=== PATIENT | male | born 1950 | race African-American/Black ===

== ENCOUNTER 2017-01-19 11:10 | Inpatient (IN) | payer OTHER, MEDICARE ==
[2017-01-19 12:51] VITALS: BMI 23.6
--- NOTE | 2017-01-19 14:22 | HP ---
COWS - Scale Resting Pulse: 1= OK 81-100 Sweatin=Flushed/Facial Moisture Restless Observation: 3= Extraneous Movement Pupil Size: 2= Moderately Dilated Bone or Joint Aches: 2= Severe Diffuse Aches Runny Nose/ Eye Tearin= Runny Nose/Eyes GI Upset > 30mins: 3= Vomiting/Diarrhea Tremor Observation: 2= Slight Tremor Visible Yawning Observation: 2= >3x During Session Anxiety or Irritability: 2=Irritable/Anxious Goose Flesh Skin: 0=Smooth Skin COWS Score: 21 CIWA Score - CIWA Score Nausea/Vomitin Muscle Tremors: 3 Anxiety: 3 Agitation: 3 Paroxysmal Sweats: 2 Orientation: 0-Oriented Tacttile Disturbances: 2-Mild Itch/Numbness/Burn Auditory Disturbances: 2-Mild Harshness/Frighten Visual Disturbances: 2-Mild Sensitivity Headache: 2-Mild CIWA-Ar Total Score: 22 Admission ROS BHS - HPI Chief Complaint: I NEED HELP STOP USING HEROIN,ALCOHOL AND COCAINE Allergies/Adverse Reactions: Allergies Allergy/AdvReac Type Severity Reaction Status Date / Time No Known Allergies Allergy Verified 01/19/17 14:17 History of Present Illness: THIS 67 YEARS OLD MALE WITH HEROINE,COCAINE AND ALCOHOL DEPENDENCE,SEEKING DETOX ,LAST TREATMENT 08/10 [facility] MULTIPLE MEDICAL PROBLEM HEPATITIS C,HYPERTENSION,BPH,ARTHRITIS WEIGHT LOSS NO SIGNIFICANT PERIOD OF SOBRIETY Exam Limitations: No Limitations - Ebola screening Have you traveled outside of the country in the last 21 days: No Have you had contact with anyone from an Ebola affected area: No Have you been sick,other than usual withdrawal symptoms: No Do you have a fever: No - Review of Systems Constitutional: Loss of Appetite, Malaise, Night Sweats, Changes in sleep, Unintentional Wgt. Loss EENT: reports: Tearing, Nose Congestion Respiratory: reports: No Symptoms reported Cardiac: reports: No Symptoms Reported GI: reports: Diarrhea, Nausea, Vomiting, Abdominal cramping : reports: No Symptoms Reported Musculoskeletal: reports: Back Pain, Muscle Pain Integumentary: reports: Dryness Neuro: reports: Tremors Endocrine: reports: No Symptoms Reported Hematology: reports: No Symptoms Reported Psychiatric: reports: No Sypmtoms Reported, Judgement Intact, Mood/Affect Appropiate, Orientated x3, Agitated, Anxious Patient History - Patient Medical History Hx Anemia: No Hx Asthma: No Hx Chronic Obstructive Pulmonary Disease (COPD): No Hx Cancer: No Hx Cardiac Disorders: No Hx Congestive Heart Failure: No Hx Hypertension: Yes (ON MED) Hx Hypercholesterolemia: No Hx Pacemaker: No HX Cerebrovascular Accident: No Hx Seizures: No Hx Dementia: No Hx Diabetes: No Hx Gastrointestinal Disorders: No Hx Liver Disease: No Hx Genitourinary Disorders: No Hx Sexually Transmitted Disorders: No Hx Renal Disease (ESRD): No Hx Thyroid Disease: No Hx Human Immunodeficiency Virus (HIV): No (LAST 07/11 NEGATIVE) Hx Hepatitis C: Yes Hx Depression: Yes (ANXIETY) Hx Suicide Attempt: No Hx Bipolar Disorder: No Hx Schizophrenia: No Other Medical History: NO SUCIDAL,NO HOMICIDAL - Patient Surgical History Past Surgical History: No - PPD History Previous Implant?: Yes Documented Results: Positive w/o proof Implanted On Prior [facility] Admission?: No PPD to be Administered?: No - Smoking Cessation Smoking history: Current every day smoker Have you smoked in the past 12 months: Yes Aproximately how many cigarettes per day: 8 Cigars Per Day: 0 Hx Chewing Tobacco Use: No Initiated information on smoking cessation: Yes 'Breaking Loose' booklet given: 01/19/17 - Substance & Tx. History Hx Alcohol Use: Yes Hx Substance Use: Yes Substance Use Type: Alcohol, Cocaine, Heroin Hx Substance Use Treatment: Yes (LAST [facility] 07/11) - Substances Abused Heroin Route: Injection Frequency: Daily Amount used: 5 bags Age of first use: 17 Date of Last Use: 01/17/17 Alcohol Route: Oral Frequency: Daily Amount used: 1 pint whiskey Age of first use: 16 Date of Last Use: 01/17/17 Cocaine Route: Injection Frequency: Daily Amount used: 1/2 ounce Age of first use: 17 Date of Last Use: 01/19/17 Family Disease History - Family Disease History Family Disease History: Other: Father (ALCOHOL,), Mother (ALCOHOL, ), Sister (ALCOHOL,) Admission Physical Exam BHS - Vital Signs Vital Signs: Vital Signs - 24 hr 01/19/17 12:42 Temperature 96.7 F L Pulse Rate 84 Respiratory 20 Rate Blood Pressure 160/100 - Physical General Appearance: Yes: Moderate Distress, Tremorous, Irritable, Sweating, Anxious HEENTM: Yes: Normal ENT Inspection, NUVIA, Pharynx Normal Respiratory: Yes: Lungs Clear, Normal Breath Sounds, No Respiratory Distress Neck: Yes: Within Normal Limits, Supple, Trachea in good position Breast: Yes: Within Normal Limits Cardiology: Yes: Within Normal Limits, Regular Rhythm, Regular Rate, S1, S2 Abdominal: Yes: Within Normal Limits, Normal Bowel Sounds, Non Tender, Flat, Soft Genitourinary: Yes: Within Normal Limits Back: Yes: Muscle Spasm Musculoskeletal: Yes: full range of Motion, Back pain, Muscle Pain Extremities: Yes: Tremors Neurological: Yes: pump tender II-XII NML intact, Fully Oriented, Alert, Motor Strength 5/5 Integumentary: Yes: Dry Lymphatic: Yes: Within Normal Limits - Diagnostic (1) Opioid dependence with withdrawal Current Visit: Yes Status: Acute (2) Cocaine dependence Current Visit: Yes Status: Acute (3) Alcohol dependence with uncomplicated withdrawal Current Visit: Yes Status: Acute (4) Hepatitis C Current Visit: Yes Status: Acute (5) Nicotine dependence Current Visit: Yes Status: Acute (6) Hypertension Current Visit: Yes Status: Acute (7) BPH (benign prostatic hyperplasia) Current Visit: Yes Status: Acute (8) Anxiety and depression Current Visit: Yes Status: Acute (9) Arthritis Current Visit: Yes Status: Acute Cleared for Admission S - Detox or Rehab [facility] Level of Care: Medically Managed Detox Regimen/Protocol: Librium [facility] Breath Alcohol Content Breath Alcohol Content: 0 Urine Drug Screen - Results Drug Screen Negative: No Urine Drug Screen Results: SHIVANI-Cocaine, OPI-Opiates, TCA-Tricyclic Antidepress
[2017-01-19] MEDS ORDERED: diphenhydrAMINE HCL 50 MG CAPSULE PO PRN (14:41)
[2017-01-19] MEDS ORDERED: chlordiazePOXIDE HCL 25 MG CAPSULE PO PRN (14:41)
[2017-01-19] MEDS ORDERED: MAGNESIUM CITRATE 300 ML BOTTLE PO PRN (14:41)
[2017-01-19] MEDS ORDERED: guaiFENesin/D-METHORPHAN HB 10 ML UNIT-DOSE CUPS PO PRN (14:41)
[2017-01-19] MEDS ORDERED: MENTHOL/PHENOL 1 EACH UD MM PRN (14:41)
[2017-01-19] MEDS ORDERED: MAG HYDROX/AL HYDROX/SIMETH 30 ML UNIT-DOSE CUP PO PRN (14:41)
[2017-01-19] MEDS ORDERED: MAGNESIUM HYDROX 2400MG/30ML ORAL SUSPENSION 30 ML CUP PO PRN (14:41)
[2017-01-19] MEDS ORDERED: ACETAMINOPHEN 325 MG TABLET (FP) PO PRN (14:41)
[2017-01-19] MEDS ORDERED: LOPERAMIDE HCL 2 MG CAPSULE PO PRN (14:41)
[2017-01-19] MEDS ORDERED: P-EPHED 60MG/TRIPROLIDI 2.5MG TABLET PO PRN (14:41)
[2017-01-19] MEDS ORDERED: IBUPROFEN 400 MG TABLET (FP) PO PRN (14:41)
[2017-01-19] MEDS ORDERED: METHADONE HCL 10 MG TABLET (FOR DETOX USE ONLY) PO ONE ×2 (16:15→23:00)
[2017-01-19] MEDS ORDERED: METHADONE HCL 10 MG TABLET (FOR DETOX USE ONLY) ONE (18:39)
[2017-01-19] MEDS: chlordiazePOXIDE HCL 25 MG CAPSULE PO SCH ×2 (18:40→23:08)
[2017-01-19] MEDS: AMITRIPTYLINE HCL 100 MG TABLET PO SCH (22:55)
[2017-01-19] MEDS: THIAMINE HCL 100 MG TABLET (FP) PO SCH (23:08)
[2017-01-19] MEDS: MIRTAZAPINE 15 MG TABLET (FP) PO SCH (23:08)
[2017-01-20 00:50] LABS: URINE APPEARANCE CLEAR; URINE BILIRUBIN NEGATIVE (NEGATIVE); URINE BLOOD NEGATIVE (NEGATIVE); URINE COLOR LTYELLOW; URINE GLUCOSE (UA) NEGATIVE (NEGATIVE); URINE KETONE NEGATIVE (NEGATIVE); URINE NITRITE NEGATIVE (NEGATIVE); URINE UROBILINOGEN NEGATIVE mg/dL (0.2-1.0)
[2017-01-20 00:56] LABS: URINE PROTEIN 1+ (NEGATIVE)
[2017-01-20 00:58] LABS: URINE HYALINE CAST 3 /lpf; URINE RBC <1 /hpf (0-3); URINE WBC <1 /hpf (3-5)
[2017-01-20 03:26] LABS: HIV 1 & 2 AB NEGATIVE; HIV 1 AGp24 NEGATIVE
[2017-01-20] MEDS: chlordiazePOXIDE HCL 25 MG CAPSULE PO SCH ×4 (06:04→22:33)
[2017-01-20 09:51] LABS: MCH 29.6 pg (25.7-33.7); MCHC 34.3 g/dl (32.0-35.9); MEAN CELL VOLUME 86.3 fl (80-96); MEAN PLT VOLUME 9.8 fl (7.5-11.1); PLATELET COUNT 190 K/MM3 (134-434); RDW 15.2 % (11.9-15.9); WHITE BLOOD COUNT 3.7 K/mm3 (4.0-10.0)
[2017-01-20] MEDS ORDERED: METHADONE HCL 10 MG TABLET (FOR DETOX USE ONLY) PO SCH (10:00)
[2017-01-20 10:12] LABS: URINE LEUK ESTERASE Negative (NEGATIVE)
--- NOTE | 2017-01-20 10:12 | EKG ---
Test Reason : Blood Pressure : / mmHG Vent. Rate : 069 BPM Atrial Rate : 069 BPM P-R Int : 156 ms QRS Dur : 094 ms QT Int : 398 ms P-R-T Axes : 078 029 057 degrees QTc Int : 426 ms NORMAL SINUS RHYTHM POSSIBLE LEFT ATRIAL ENLARGEMENT ANTEROSEPTAL INFARCT , AGE UNDETERMINED ABNORMAL ECG NO PREVIOUS ECGS AVAILABLE Confirmed by RADHA LYNN MD ([id number]) on 01/20/2017 10:12:19 AM Referred By: Elizabeth Ponce Confirmed By:RADHA LYNN MD
[2017-01-20 10:32] LABS: ALBUMIN 3.5 g/dl (3.4-5.0); ALK PHOS 71 U/L (45-117); ANION GAP 6 (8-16); BILIRUBIN,TOTAL 0.9 mg/dL (0.2-1.0); CALCIUM 8.8 mg/dL (8.5-10.1); CO2 26 mmol/L (21-32); CREATININE 1.2 mg/dL (0.7-1.3); GLUCOSE,RANDOM 71 mg/dL (74-106); SGOT/AST 34 U/L (15-37); SGPT/ALT 41 U/L (12-78)
[2017-01-20] MEDS: PRENATAL VITAMINS W/ FOLIC ACID TABLET (FP) PO SCH (11:04)
[2017-01-20] MEDS: TAMSULOSIN HCL 0.4 MG CAP.ER.24H (FP) PO SCH (11:04)
[2017-01-20] MEDS: PATIENT'S OWN MEDICATION (NON-FORMULARY) (Brexpiprazole [Rexulti] 2 MG) PO SCH (11:04)
[2017-01-20] MEDS: amLODIPine BESYLATE 5 MG TABLET (FP) PO SCH (11:05)
--- NOTE | 2017-01-20 12:06 | PN ---
[facility] CIWA - CIWA Score Nausea/Vomitin Muscle Tremors: 3 Anxiety: 3 Agitation: 3 Paroxysmal Sweats: 1-Minimal Palms Moist Orientation: 0-Oriented Tacttile Disturbances: 1-Very Mild Itch/Numbness Auditory Disturbances: 1-Very Mild Visual Disturbances: 0-None Headache: 2-Mild CIWA-Ar Total Score: 17 BHS Progress Note (SOAP) Subjective: ALERT,IRRITABLE,ANXIOUS,INTERRUPTED SLEEP,TREMOR,PAIN IN THE BODY AND BACK Objective: 01/20/17 12:02 Vital Signs Temperature 97.7 F 01/20/17 10:00 Pulse Rate 79 01/20/17 10:00 Respiratory Rate 18 01/20/17 10:00 Blood Pressure 129/85 01/20/17 10:00 O2 Sat by Pulse Oximetry (%) EKG NSR,ST IN V3,V4 NO CHEST PAIN,NO SOB,NO DIZZINESS Laboratory Last Values WBC 3.7 K/mm3 (4.0-10.0) L 01/20/17 06:00 RBC 4.80 M/mm3 (4.00-5.60) 01/20/17 06:00 Hgb 14.2 GM/dL (11.7-16.9) 01/20/17 06:00 Hct 41.4 % (35.4-49) 01/20/17 06:00 MCV 86.3 fl (80-96) 01/20/17 06:00 MCH 29.6 pg (25.7-33.7) 01/20/17 06:00 MCHC 34.3 g/dl (32.0-35.9) 01/20/17 06:00 RDW 15.2 % (11.9-15.9) 01/20/17 06:00 Plt Count 190 K/MM3 (134-434) 01/20/17 06:00 MPV 9.8 fl (7.5-11.1) 01/20/17 06:00 Sodium 139 mmol/L (136-145) 01/20/17 06:00 Potassium 4.1 mmol/L (3.5-5.1) 01/20/17 06:00 Chloride 107 mmol/L (98-107) 01/20/17 06:00 Carbon Dioxide 26 mmol/L (21-32) 01/20/17 06:00 Anion Gap 6 (8-16) L 01/20/17 06:00 BUN 24 mg/dL (7-18) H 01/20/17 06:00 Creatinine 1.2 mg/dL (0.7-1.3) 01/20/17 06:00 Creat Clearance w eGFR > 60 (>60) 01/20/17 06:00 Random Glucose 71 mg/dL (74-106) L 01/20/17 06:00 Calcium 8.8 mg/dL (8.5-10.1) 01/20/17 06:00 Total Bilirubin 0.9 mg/dL (0.2-1.0) 01/20/17 06:00 AST 34 U/L (15-37) 01/20/17 06:00 ALT 41 U/L (12-78) 01/20/17 06:00 Alkaline Phosphatase 71 U/L (45-117) 01/20/17 06:00 Total Protein 8.0 g/dl (6.4-8.2) 01/20/17 06:00 Albumin 3.5 g/dl (3.4-5.0) 01/20/17 06:00 Urine Color Ltyellow 01/19/17 22:04 Urine Appearance Clear 01/19/17 22:04 Urine pH 6.0 (5.0-8.0) 01/19/17 22:04 Ur Specific [place] 1.015 (1.005-1.025) 01/19/17 22:04 Urine Protein 1+ (NEGATIVE) H 01/19/17 22:04 Urine Glucose (UA) Negative (NEGATIVE) 01/19/17 22:04 Urine Ketones Negative (NEGATIVE) 01/19/17 22:04 Urine Blood Negative (NEGATIVE) 01/19/17 22:04 Urine Nitrite Negative (NEGATIVE) 01/19/17 22:04 Urine Bilirubin Negative (NEGATIVE) 01/19/17 22:04 Urine Urobilinogen Negative mg/dL (0.2-1.0) 01/19/17 22:04 Ur Leukocyte Esterase Negative (NEGATIVE) 01/19/17 22:04 Urine RBC <1 /hpf (0-3) 01/19/17 22:04 Urine WBC <1 /hpf (3-5) 01/19/17 22:04 Hyaline Casts 3 /lpf 01/19/17 22:04 RPR Titer Nonreactive (NONREACTIVE) 01/20/17 06:00 HIV 1&2 Antibody Screen Negative 01/19/17 14:40 HIV P24 Antigen Negative 01/19/17 14:40 01/20/17 12:06 NO CHEST PAIN,NO SOB,NO DIZZINESS Assessment: 01/20/17 12:06 WITHDRAWAL SYMPTOM Plan: CONTINUE DETOX,ENCOURAGE ORAL FLUID
--- NOTE | 2017-01-20 13:24 | CONSULT ---
[facility] Psychiatric Consult - Data Date of interview: 01/20/17 Admission source: [facility] Identifying data: First admission to [facility] for this 67 y/o AA male seeking detox treatment on for alcohol,cocaine and heroin dependence.Patient is single,a father of one,domiciled,unemployed and supported on SSI benefits. Substance Abuse History: Discussed in this interview.Mr Lynch confirmed a long standing history of heroin,cocaine and alcohol dependence as depicted in this [facility] report. Smoking history: Current every day smoker. Have you smoked in the past 12 months: Yes. Aproximately how many cigarettes per day: 8. Cigars Per Day: 0. Hx Chewing Tobacco Use: No. Initiated information on smoking cessation : Yes. 'Breaking Loose' booklet given: 01/19/17. - Substance & Tx. History. Hx Alcohol Use: Yes. Hx Substance Use: Yes. Substance Use Type: Alcohol, Cocaine, Heroin. Hx Substance Use Treatment: Yes (LAST [facility] 07/11). - Substances Abused. Heroin. Route: Injection. Frequency: Daily. Amount used: 5 bags. Age of first use: 17. Date of Last Use: 01/17/17. Alcohol. Route: Oral. Frequency: Daily. Amount used: 1 pint whiskey. Age of first use : 16. Date of Last Use: 01/17/17. Cocaine. Route: Injection. Frequency: Daily. Amount used: 1/2 ounce. Age of first use: 17. Date of Last Use: Medical History: Consistent with hepatitis C,hypertension,arthritis and benign prostatic hyperplasia. Psychiatric History: No reported history of psychiatric hospitalizations.Mr Lynch reports current OPD care at the [facility] clinic in the [place].Diagnosed with Bipolar Disorder as per self-report.Prescribed rexulti 2 mg /hs + remeron 15 mg/hs + amitryptiline 100 mg/hs.Verified via review of recent pharmacy claims of 01/05/17 + 01/13/17 at [facility].Patient denies history of suicide attempts. Physical/Sexual Abuse/Trauma History: Patient denies. Additional Comment: Urine Drug Screen Results: SHIVANI-Cocaine, OPI-Opiates, TCA- Tricyclic Antidepressant.Noted. Mental Status Exam - Mental Status Exam Alert and Oriented to: Time, Place, Person Cognitive Function: Good Patient Appearance: Well Groomed Mood: Hopeful, Euthymic Affect: Appropriate, Normal Range Patient Behavior: Appropriate, Cooperative Speech Pattern: Clear Voice Loudness: Normal Thought Process: Intact, Goal Oriented Thought Disorder: Not Present Hallucinations: Denies Suicidal Ideation: Denies Homicidal Ideation: Denies Insight/Judgement: Poor Sleep: Poorly, Difficulty falling asleep Appetite: Good Muscle strength/Tone: Normal Gait/Station: Normal Psychiatric Findings - Problem List ([place] 1, 2,3) (1) Opioid dependence with withdrawal Current Visit: Yes Status: Acute (2) Alcohol dependence with uncomplicated withdrawal Current Visit: Yes Status: Acute (3) Cocaine dependence Current Visit: Yes Status: Acute (4) Nicotine dependence Current Visit: Yes Status: Acute (5) Substance induced mood disorder Current Visit: Yes Status: Acute (6) Bipolar disorder Current Visit: Yes Status: Chronic Comment: History reported by patient.On medications. (7) Arthritis Current Visit: Yes Status: Chronic (8) BPH (benign prostatic hyperplasia) Current Visit: Yes Status: Chronic (9) Hepatitis C Current Visit: Yes Status: Chronic (10) Hypertension Current Visit: Yes Status: Chronic (11) Insomnia Current Visit: Yes Status: Acute - Initial Treatment Plan Initial Treatment Plan: Psychoeducation.Detoxification.Medications : rexulti 2 mg po daily + remeron 15 mg po hs + amitryptiline 100 mg po hs.Side effects/ benefits of each drug are discussed with the patient.He is in agreement with this careplan.Amitryptiline level is requested.Will follow.Observation.
[2017-01-20] MEDS: MIRTAZAPINE 15 MG TABLET (FP) PO SCH (22:33)
[2017-01-20] MEDS: THIAMINE HCL 100 MG TABLET (FP) PO SCH (22:33)
[2017-01-20] MEDS: CYCLOBENZAPRINE HCL 10 MG TABLET (FP) PO PRN (22:33)
[2017-01-20] MEDS: AMITRIPTYLINE HCL 100 MG TABLET PO SCH (22:33)
[2017-01-21] MEDS: chlordiazePOXIDE HCL 25 MG CAPSULE PO SCH ×2 (05:29→11:00)
[2017-01-21] MEDS: TAMSULOSIN HCL 0.4 MG CAP.ER.24H (FP) PO SCH (10:55)
[2017-01-21] MEDS: amLODIPine BESYLATE 5 MG TABLET (FP) PO SCH (10:55)
[2017-01-21] MEDS: PRENATAL VITAMINS W/ FOLIC ACID TABLET (FP) PO SCH (10:55)
[2017-01-21] MEDS: METHADONE HCL 5 MG TABLET (FOR DETOX USE ONLY) PO SCH (10:55)
[2017-01-21] MEDS: PATIENT'S OWN MEDICATION (NON-FORMULARY) (Brexpiprazole [Rexulti] 2 MG) PO SCH (10:56)
--- NOTE | 2017-01-21 12:50 | PN ---
S CIWA - CIWA Score Nausea/Vomitin Muscle Tremors: 3 Anxiety: 3 Agitation: 2 Paroxysmal Sweats: 1-Minimal Palms Moist Orientation: 0-Oriented Tacttile Disturbances: 1-Very Mild Itch/Numbness Auditory Disturbances: 1-Very Mild Visual Disturbances: 0-None Headache: 2-Mild CIWA-Ar Total Score: 16 BHS Progress Note (SOAP) Subjective: ALERT,IRRITABLE,ANXIOUS,INTERRUPTED SLEEP,PAIN IN THE BODY Objective: 01/21/17 12:48 Vital Signs Temperature 97.2 F L 01/21/17 10:25 Pulse Rate 92 H 01/21/17 10:25 Respiratory Rate 18 01/21/17 10:25 Blood Pressure 127/77 01/21/17 10:25 O2 Sat by Pulse Oximetry (%) Laboratory Last Values WBC 3.7 K/mm3 (4.0-10.0) L 01/20/17 06:00 RBC 4.80 M/mm3 (4.00-5.60) 01/20/17 06:00 Hgb 14.2 GM/dL (11.7-16.9) 01/20/17 06:00 Hct 41.4 % (35.4-49) 01/20/17 06:00 MCV 86.3 fl (80-96) 01/20/17 06:00 MCH 29.6 pg (25.7-33.7) 01/20/17 06:00 MCHC 34.3 g/dl (32.0-35.9) 01/20/17 06:00 RDW 15.2 % (11.9-15.9) 01/20/17 06:00 Plt Count 190 K/MM3 (134-434) 01/20/17 06:00 MPV 9.8 fl (7.5-11.1) 01/20/17 06:00 Sodium 139 mmol/L (136-145) 01/20/17 06:00 Potassium 4.1 mmol/L (3.5-5.1) 01/20/17 06:00 Chloride 107 mmol/L (98-107) 01/20/17 06:00 Carbon Dioxide 26 mmol/L (21-32) 01/20/17 06:00 Anion Gap 6 (8-16) L 01/20/17 06:00 BUN 24 mg/dL (7-18) H 01/20/17 06:00 Creatinine 1.2 mg/dL (0.7-1.3) 01/20/17 06:00 Creat Clearance w eGFR > 60 (>60) 01/20/17 06:00 Random Glucose 71 mg/dL (74-106) L 01/20/17 06:00 Calcium 8.8 mg/dL (8.5-10.1) 01/20/17 06:00 Total Bilirubin 0.9 mg/dL (0.2-1.0) 01/20/17 06:00 AST 34 U/L (15-37) 01/20/17 06:00 ALT 41 U/L (12-78) 01/20/17 06:00 Alkaline Phosphatase 71 U/L (45-117) 01/20/17 06:00 Total Protein 8.0 g/dl (6.4-8.2) 01/20/17 06:00 Albumin 3.5 g/dl (3.4-5.0) 01/20/17 06:00 Urine Color Ltyellow 01/19/17 22:04 Urine Appearance Clear 01/19/17 22:04 Urine pH 6.0 (5.0-8.0) 01/19/17 22:04 Ur Specific [place] 1.015 (1.005-1.025) 01/19/17 22:04 Urine Protein 1+ (NEGATIVE) H 01/19/17 22:04 Urine Glucose (UA) Negative (NEGATIVE) 01/19/17 22:04 Urine Ketones Negative (NEGATIVE) 01/19/17 22:04 Urine Blood Negative (NEGATIVE) 01/19/17 22:04 Urine Nitrite Negative (NEGATIVE) 01/19/17 22:04 Urine Bilirubin Negative (NEGATIVE) 01/19/17 22:04 Urine Urobilinogen Negative mg/dL (0.2-1.0) 01/19/17 22:04 Ur Leukocyte Esterase Negative (NEGATIVE) 01/19/17 22:04 Urine RBC <1 /hpf (0-3) 01/19/17 22:04 Urine WBC <1 /hpf (3-5) 01/19/17 22:04 Hyaline Casts 3 /lpf 01/19/17 22:04 RPR Titer Nonreactive (NONREACTIVE) 01/20/17 06:00 HIV 1&2 Antibody Screen Negative 01/19/17 14:40 HIV P24 Antigen Negative 01/19/17 14:40 Assessment: 01/21/17 12:49 WITHDRAWAL SYMPTOM Plan: CONTINUE DETOX,ENCOURAGE ORAL FLUID
[2017-01-21] MEDS: chlordiazePOXIDE 5 MG CAPSULE PO SCH ×2 (17:55→22:44)
[2017-01-21] MEDS: MIRTAZAPINE 15 MG TABLET (FP) PO SCH (22:44)
[2017-01-21] MEDS: THIAMINE HCL 100 MG TABLET (FP) PO SCH (22:44)
[2017-01-21] MEDS: AMITRIPTYLINE HCL 100 MG TABLET PO SCH (22:44)
[2017-01-22] MEDS: chlordiazePOXIDE 5 MG CAPSULE PO SCH ×2 (05:34→10:43)
[2017-01-22] MEDS: TAMSULOSIN HCL 0.4 MG CAP.ER.24H (FP) PO SCH (10:43)
[2017-01-22] MEDS: amLODIPine BESYLATE 5 MG TABLET (FP) PO SCH (10:43)
[2017-01-22] MEDS: METHADONE HCL 5 MG TABLET (FOR DETOX USE ONLY) PO SCH (10:43)
[2017-01-22] MEDS: PRENATAL VITAMINS W/ FOLIC ACID TABLET (FP) PO SCH (10:43)
[2017-01-22] MEDS: CYCLOBENZAPRINE HCL 10 MG TABLET (FP) PO PRN (10:43)
[2017-01-22] MEDS: PATIENT'S OWN MEDICATION (NON-FORMULARY) (Brexpiprazole [Rexulti] 2 MG) PO SCH (10:44)
--- NOTE | 2017-01-22 12:53 | PN ---
BHS Progress Note (SOAP) Subjective: ALERT,IRRITABLE,ANXIOUS,INTERRUPTED SLEEP,PAIN IN THE BODY Objective: 01/22/17 12:52 Vital Signs Temperature 98.6 F 01/22/17 10:00 Pulse Rate 97 H 01/22/17 10:00 Respiratory Rate 19 01/22/17 10:00 Blood Pressure 121/69 01/22/17 10:00 O2 Sat by Pulse Oximetry (%) Assessment: 01/22/17 12:52 WITHDRAWAL SYMPTOM Plan: CONTINUE DETOX
[2017-01-22] MEDS: chlordiazePOXIDE HCL 10 MG CAPSULE PO SCH ×2 (17:25→22:31)
[2017-01-22] MEDS: THIAMINE HCL 100 MG TABLET (FP) PO SCH (22:31)
[2017-01-22] MEDS: AMITRIPTYLINE HCL 100 MG TABLET PO SCH (22:31)
[2017-01-22] MEDS: MIRTAZAPINE 15 MG TABLET (FP) PO SCH (22:31)
[2017-01-23] MEDS: chlordiazePOXIDE HCL 10 MG CAPSULE PO SCH ×2 (05:33→12:22)
--- NOTE | 2017-01-23 09:43 | PN ---
BHS Progress Note (SOAP) Subjective: ALERT,INTERRUPTED SLEEP Objective: 01/23/17 09:42 Vital Signs Temperature 98.1 F 01/23/17 06:14 Pulse Rate 100 H 01/23/17 06:14 Respiratory Rate 20 01/23/17 06:14 Blood Pressure 137/90 01/23/17 06:14 O2 Sat by Pulse Oximetry (%) Assessment: 01/23/17 09:42 WITHDRAWAL SYMPTOM Plan: CONTINUE DETOX,DISCHARGE IN AM
[2017-01-23] MEDS ORDERED: METHADONE HCL 10 MG TABLET (FOR DETOX USE ONLY) PO SCH (10:00)
[2017-01-23] MEDS: amLODIPine BESYLATE 5 MG TABLET (FP) PO SCH (12:21)
[2017-01-23] MEDS: PRENATAL VITAMINS W/ FOLIC ACID TABLET (FP) PO SCH (12:21)
[2017-01-23] MEDS: TAMSULOSIN HCL 0.4 MG CAP.ER.24H (FP) PO SCH (12:21)
[2017-01-23] MEDS: PATIENT'S OWN MEDICATION (NON-FORMULARY) (Brexpiprazole [Rexulti] 2 MG) PO SCH (12:26)
[2017-01-23] MEDS: CYCLOBENZAPRINE HCL 10 MG TABLET (FP) PO PRN ×2 (18:39→22:05)
[2017-01-23] MEDS: AMITRIPTYLINE HCL 100 MG TABLET PO SCH (22:05)
[2017-01-23] MEDS: THIAMINE HCL 100 MG TABLET (FP) PO SCH (22:05)
[2017-01-23] MEDS: MIRTAZAPINE 15 MG TABLET (FP) PO SCH (22:05)
[2017-01-24] MEDS ORDERED: METHADONE HCL 5 MG TABLET (FOR DETOX USE ONLY) PO SCH (06:00)
--- NOTE | 2017-01-24 08:22 | DS ---
[facility] Detox Discharge Summary Admission Date: 01/19/17 Discharge Date: 01/24/17 - History Present History: Alcohol Dependence Additional Comments: FOLLOW UP WITH AFTER [facility] PROGRAM ARRANGEMENT Pertinent Past History: HYPERTENSION HEPATITIS C BPH ARTHRITIS BPH ANXIETY AND DEPRESSION - Physical Exam Results Vital Signs: Vital Signs Temperature 96.6 F L 01/24/17 06:00 Pulse Rate 97 H 01/24/17 07:24 Respiratory Rate 18 01/24/17 07:24 Blood Pressure 142/90 01/24/17 07:24 O2 Sat by Pulse Oximetry (%) Pertinent Admission Physical Exam Findings: WITHDRAWAL SYMPTOM - Treatment Hospital Course: Detox Protocol Followed, Detoxed Safely, Responded well, Discharged Condition Good, Rehab Referral Accepted Patient has Accepted a Rehab Referral to: [facility] - Medication Discharge Medications: Ambulatory Orders Amitriptyline HCl [Elavil -] 100 mg PO HS 01/19/17 Amlodipine Besylate [Norvasc -] 5 mg PO DAILY 01/19/17 Brexpiprazole [Rexulti] 2 mg PO DAILY 01/19/17 Mirtazapine [Remeron -] 15 mg PO HS 01/19/17 Tamsulosin HCl [Flomax] 0.4 mg PO DAILY 01/19/17 Tizanidine HCl [Zanaflex] 4 mg PO TID PRN 01/19/17 Brexpiprazole [Rexulti] 2 mg PO HS #30 tablet 01/21/17 Mirtazapine [Remeron -] 15 mg PO HS #30 tablet 01/21/17 - Diagnosis (1) Opioid dependence with withdrawal Current Visit: Yes Status: Acute (2) Cocaine dependence Current Visit: Yes Status: Acute (3) Alcohol dependence with uncomplicated withdrawal Current Visit: Yes Status: Acute (4) Hepatitis C Current Visit: Yes Status: Chronic (5) Nicotine dependence Current Visit: Yes Status: Acute (6) Hypertension Current Visit: Yes Status: Chronic (7) BPH (benign prostatic hyperplasia) Current Visit: Yes Status: Chronic (8) Anxiety and depression Current Visit: Yes Status: Acute (9) Arthritis Current Visit: Yes Status: Chronic - AMA Did Patient Leave Against Medical Advice: No
[2017-01-24] MEDS: PRENATAL VITAMINS W/ FOLIC ACID TABLET (FP) PO SCH (10:15)
[2017-01-24] MEDS: TAMSULOSIN HCL 0.4 MG CAP.ER.24H (FP) PO SCH (10:15)
[2017-01-24] MEDS: amLODIPine BESYLATE 5 MG TABLET (FP) PO SCH (10:15)
[2017-01-24] MEDS: PATIENT'S OWN MEDICATION (NON-FORMULARY) (Brexpiprazole [Rexulti] 2 MG) PO SCH (10:17)
[2017-01-24 10:33] VITALS: BP 131/91; PULSE 92; TEMP 96.8
[2017-01-24 14:17] LABS: AMITRIPTYLINE 55 ng/mL (Not Estab.); NORTRIPTYLINE None Detected (Not Estab.)
== END 2017-01-24 11:30 | disposition home or self-care (01) | DRG 773 ==
LOC: YASAS 11:10 → Y6N 15:23
PROVIDERS: ADMIT Internal Medicine; ATTEND Internal Medicine
PROC: HZ2ZZZZ Detoxification Services for Substance Abuse Treatment (ICD-10-PCS; principal; 2017-01-19)
DX: F19.230 Other psychoactive substance dependence with withdrawal, uncomplicated (principal); F11.23 Opioid dependence with withdrawal; F10.230 Alcohol dependence with withdrawal, uncomplicated; F14.20 Cocaine dependence, uncomplicated; F17.210 Nicotine dependence, cigarettes, uncomplicated; F41.8 Other specified anxiety disorders; F31.9 Bipolar disorder, unspecified; F19.24 Other psychoactive substance dependence with psychoactive substance-induced mood disorder; I10 Essential (primary) hypertension; B18.2 Chronic viral hepatitis C; G47.00 Insomnia, unspecified; M19.90 Unspecified osteoarthritis, unspecified site; Z87.898 Personal history of other specified conditions
CPT/HCPCS: 36415; 71020-TC; 80053; 81003; 81015; 82140; 85027; 86593; 87389; 93005; 93010; G0480

== ENCOUNTER 2017-01-24 11:36 | Inpatient (IN) | payer OTHER, MEDICARE ==
--- NOTE | 2017-01-24 12:10 | HP ---
Psychiatrist Admission - Data Date of interview: 01/24/17 Admission source: [facility] Identifying data: This is the First [facility] admission for this 67 years old single Black male, father of a 15 years old daughter, unemployed on SSI, domiciled Medical History: Significant for hepatitis C, hypertension, arthritis, PPD+, and benign prostatic hyperplasia. Smokes 8 cigarettes daily Psychiatric History: Reports being diagnosed with Bipolar/Schizophrenia by a psychiatrist at [facility] in the [place] where he has been attending since 2016.He is currently prescribed Rexulti 2 mg po HS, Remeron 15 mg po HS and Amitriptyline 100 mg po HS. Denies history of previous psychiatric hospitalization or suicidal attempt. He saw Dr Ernandez on 01/20/17 and was continued on his medications. Physical/Sexual Abuse/Trauma History: Denies history of verbal, physical or sexual abuse as well as DV relationship. No service Additional Comment: Reports history ofmultiple previous srrests including 3 felony convictions. Reports being on parole June 06 Allergies/Adverse Reactions: Allergies Allergy/AdvReac Type Severity Reaction Status Date / Time No Known Allergies Allergy Verified 01/24/17 11:57 Date of last physical exam: 01/19/17 Concur with the findings of this exam: Yes - Substance Abuse/Tx History Hx Alcohol Use: Yes Hx Substance Use: Yes Substance Use Type: Alcohol (Started drinking alcohol at age 16, consumes one pint of whiskey daily. Last drank on 01/17/17), Cocaine (Started using cocaine at age 17, consumes half an oz daily. Last used on 01/19/17), Heroin (Started using heroin at age 17, consumes 5 bags daily. Last used on 01/17/17) Hx Substance Use Treatment: Yes (2 previous inpt detox & 2 inpt rehab admissions ) Mental Status Exam - Mental Status Exam Alert and Oriented to: Person Cognitive Function: Fair Patient Appearance: Well Groomed Mood: Hopeful, Euthymic Affect: Blunted Patient Behavior: Cooperative Speech Pattern: Clear Voice Loudness: Normal Thought Process: Intact, Goal Oriented Hallucinations: Denies Suicidal Ideation: Denies Homicidal Ideation: Denies Insight/Judgement: Fair Sleep: Well Appetite: Good Muscle strength/Tone: Normal Gait/Station: Normal Psychiatric Findings - Problem List ([place] 1, 2,3) (1) Alcohol dependence Current Visit: Yes Status: Acute (2) Opioid dependence Current Visit: Yes Status: Acute (3) Cocaine dependence Current Visit: No Status: Acute (4) Nicotine dependence Current Visit: No Status: Acute (5) Schizoaffective disorder Current Visit: Yes Status: Acute (6) Bipolar disorder Current Visit: Yes Status: Ruled-out (7) Arthritis Current Visit: No Status: Chronic (8) BPH (benign prostatic hyperplasia) Current Visit: No Status: Chronic (9) Hepatitis C Current Visit: No Status: Chronic (10) Hypertension Current Visit: No Status: Chronic - Initial Treatment Plan Initial Treatment Plan: 1) Continue Rexulti 2mg po HS(own med), Remeron 15 mg po HS and Amitriptyline 100 mg po HS. 2) Monitor progress
[2017-01-24 12:24] VITALS: BMI 25.7
[2017-01-24] MEDS ORDERED: LOPERAMIDE HCL 2 MG CAPSULE PO PRN (12:51)
[2017-01-24] MEDS ORDERED: MAG HYDROX/AL HYDROX/SIMETH 30 ML UNIT-DOSE CUP PO PRN (12:51)
[2017-01-24] MEDS ORDERED: guaiFENesin/D-METHORPHAN HB 10 ML UNIT-DOSE CUPS PO PRN (12:51)
[2017-01-24] MEDS ORDERED: ACETAMINOPHEN 325 MG TABLET (FP) PO PRN (12:51)
[2017-01-24] MEDS ORDERED: MAGNESIUM CITRATE 300 ML BOTTLE PO PRN (12:51)
[2017-01-24] MEDS ORDERED: P-EPHED 60MG/TRIPROLIDI 2.5MG TABLET PO PRN (12:51)
[2017-01-24] MEDS ORDERED: IBUPROFEN 400 MG TABLET (FP) PO PRN (12:51)
[2017-01-24] MEDS ORDERED: TIZANIDINE HCL 4 MG PO PRN (12:51)
[2017-01-24] MEDS ORDERED: MAGNESIUM HYDROX 2400MG/30ML ORAL SUSPENSION 30 ML CUP PO PRN (12:51)
--- NOTE | 2017-01-24 12:54 | HP ---
[facility] Rehab Assess/Revision - Admission History Admitted to Rehab from: [facility] Date of Admission to Rehab: 01/25/2016 - Vital signs Vital Signs: Vital Signs Period Temp Pulse Resp BP Sys/Somers Pulse Ox Last 24 Hr 97.6 F 101 20 151/97 - Findings Detox History & Physical reviewed: Yes Concur with findings: Yes Inpatient Rehab Admission - Initial Determination Are CD services needed?: Yes Free of communicable disease: Yes Not in need of hospitalization: Yes - Rehab Admission Criteria Comorbidities: Yes Patient is meeting Inpatient Rehab admission criteria:: Yes
[2017-01-24] MEDS: MENTHOL/PHENOL 1 EACH UD MM PRN (17:42)
[2017-01-24] MEDS: MIRTAZAPINE 15 MG TABLET (FP) PO SCH (22:00)
[2017-01-24] MEDS: PATIENT'S OWN MEDICATION (NON-FORMULARY) (Brexpiprazole [Rexulti] 2 MG) PO SCH (22:00)
[2017-01-24] MEDS: THIAMINE HCL 100 MG TABLET (FP) PO SCH (22:00)
[2017-01-24] MEDS: AMITRIPTYLINE HCL 100 MG TABLET PO SCH (22:00)
[2017-01-25] MEDS: PRENATAL VITAMINS W/ FOLIC ACID TABLET (FP) PO SCH (09:57)
[2017-01-25] MEDS: NICOTINE 14 MG/24 HOURS TOPICAL PATCH TD SCH (09:57)
[2017-01-25] MEDS: TAMSULOSIN HCL 0.4 MG CAP.ER.24H (FP) PO SCH (09:57)
[2017-01-25] MEDS: amLODIPine BESYLATE 5 MG TABLET (FP) PO SCH (09:57)
[2017-01-25] MEDS: NICOTINE POLACRILEX 2 MG GUM BUC PRN (09:58)
[2017-01-25] MEDS ORDERED: FLU VACCINE QUAD 60 MCG/0.5 ML (MDV 17-18) IM ONE (12:00)
--- NOTE | 2017-01-25 12:42 | PN ---
BHS Progress Note Note: c/o sore throat culture for c and s magia mouthwash, tylenol prn for pain. afeb
[2017-01-25] MEDS: MAG HYDROX/ALH/SMC/DPHA/LIDO 180 ML MOUTHWASH MM SCH (17:30)
[2017-01-25] MEDS: MIRTAZAPINE 15 MG TABLET (FP) PO SCH (21:50)
[2017-01-25] MEDS: AMITRIPTYLINE HCL 100 MG TABLET PO SCH (21:50)
[2017-01-25] MEDS: PATIENT'S OWN MEDICATION (NON-FORMULARY) (Brexpiprazole [Rexulti] 2 MG) PO SCH (21:50)
[2017-01-25] MEDS: THIAMINE HCL 100 MG TABLET (FP) PO SCH (21:50)
[2017-01-26] MEDS: MAG HYDROX/ALH/SMC/DPHA/LIDO 180 ML MOUTHWASH MM SCH ×4 (00:23→17:39)
[2017-01-26] MEDS: TAMSULOSIN HCL 0.4 MG CAP.ER.24H (FP) PO SCH (09:29)
[2017-01-26] MEDS: amLODIPine BESYLATE 5 MG TABLET (FP) PO SCH (10:29)
[2017-01-26] MEDS: PRENATAL VITAMINS W/ FOLIC ACID TABLET (FP) PO SCH (10:30)
[2017-01-26] MEDS: NICOTINE 14 MG/24 HOURS TOPICAL PATCH TD SCH (10:30)
[2017-01-26] MEDS: MENTHOL/PHENOL 1 EACH UD MM PRN (17:57)
[2017-01-26] MEDS: AMITRIPTYLINE HCL 100 MG TABLET PO SCH (22:35)
[2017-01-26] MEDS: THIAMINE HCL 100 MG TABLET (FP) PO SCH (22:35)
[2017-01-26] MEDS: MIRTAZAPINE 15 MG TABLET (FP) PO SCH (22:35)
[2017-01-26] MEDS: PATIENT'S OWN MEDICATION (NON-FORMULARY) (Brexpiprazole [Rexulti] 2 MG) PO SCH (22:35)
[2017-01-27] MEDS: MAG HYDROX/ALH/SMC/DPHA/LIDO 180 ML MOUTHWASH MM SCH ×5 (00:19→23:36)
[2017-01-27] MEDS: TAMSULOSIN HCL 0.4 MG CAP.ER.24H (FP) PO SCH (08:23)
[2017-01-27] MEDS: PRENATAL VITAMINS W/ FOLIC ACID TABLET (FP) PO SCH (10:22)
[2017-01-27] MEDS: amLODIPine BESYLATE 5 MG TABLET (FP) PO SCH (10:23)
[2017-01-27] MEDS: NICOTINE 14 MG/24 HOURS TOPICAL PATCH TD SCH (10:23)
[2017-01-27] MEDS: MENTHOL/PHENOL 1 EACH UD MM PRN (11:43)
[2017-01-27] MEDS: MIRTAZAPINE 15 MG TABLET (FP) PO SCH (21:38)
[2017-01-27] MEDS: THIAMINE HCL 100 MG TABLET (FP) PO SCH (21:38)
[2017-01-27] MEDS: AMITRIPTYLINE HCL 100 MG TABLET PO SCH (21:38)
[2017-01-27] MEDS: PATIENT'S OWN MEDICATION (NON-FORMULARY) (Brexpiprazole [Rexulti] 2 MG) PO SCH (21:56)
[2017-01-27] MEDS: hydrOXYzine PAMOATE 50 MG CAPSULE (FP) PO PRN (22:32)
[2017-01-28] MEDS: MAG HYDROX/ALH/SMC/DPHA/LIDO 180 ML MOUTHWASH MM SCH ×4 (06:20→23:28)
[2017-01-28] MEDS: TAMSULOSIN HCL 0.4 MG CAP.ER.24H (FP) PO SCH (09:25)
[2017-01-28] MEDS: amLODIPine BESYLATE 5 MG TABLET (FP) PO SCH (09:58)
[2017-01-28] MEDS: PRENATAL VITAMINS W/ FOLIC ACID TABLET (FP) PO SCH (09:58)
[2017-01-28] MEDS: NICOTINE 14 MG/24 HOURS TOPICAL PATCH TD SCH (09:58)
[2017-01-28] MEDS: NICOTINE POLACRILEX 2 MG GUM BUC PRN (17:58)
[2017-01-28] MEDS: MIRTAZAPINE 15 MG TABLET (FP) PO SCH (21:43)
[2017-01-28] MEDS: AMITRIPTYLINE HCL 100 MG TABLET PO SCH (21:43)
[2017-01-28] MEDS: PATIENT'S OWN MEDICATION (NON-FORMULARY) (Brexpiprazole [Rexulti] 2 MG) PO SCH (21:44)
[2017-01-28] MEDS: THIAMINE HCL 100 MG TABLET (FP) PO SCH (21:44)
[2017-01-29] MEDS: MAG HYDROX/ALH/SMC/DPHA/LIDO 180 ML MOUTHWASH MM SCH ×4 (06:30→23:36)
[2017-01-29] MEDS: TAMSULOSIN HCL 0.4 MG CAP.ER.24H (FP) PO SCH (09:26)
[2017-01-29] MEDS: NICOTINE 14 MG/24 HOURS TOPICAL PATCH TD SCH (10:04)
[2017-01-29] MEDS: PRENATAL VITAMINS W/ FOLIC ACID TABLET (FP) PO SCH (10:05)
[2017-01-29] MEDS: amLODIPine BESYLATE 5 MG TABLET (FP) PO SCH (10:05)
[2017-01-29] MEDS: MENTHOL/PHENOL 1 EACH UD MM PRN (10:06)
[2017-01-29] MEDS: PATIENT'S OWN MEDICATION (NON-FORMULARY) (Brexpiprazole [Rexulti] 2 MG) PO SCH (21:26)
[2017-01-29] MEDS: THIAMINE HCL 100 MG TABLET (FP) PO SCH (21:27)
[2017-01-29] MEDS: MIRTAZAPINE 15 MG TABLET (FP) PO SCH (21:27)
[2017-01-29] MEDS: AMITRIPTYLINE HCL 100 MG TABLET PO SCH (21:27)
[2017-01-30] MEDS: MAG HYDROX/ALH/SMC/DPHA/LIDO 180 ML MOUTHWASH MM SCH ×3 (06:20→17:46)
[2017-01-30] MEDS: amLODIPine BESYLATE 5 MG TABLET (FP) PO SCH (10:22)
[2017-01-30] MEDS: TAMSULOSIN HCL 0.4 MG CAP.ER.24H (FP) PO SCH (10:22)
[2017-01-30] MEDS: PRENATAL VITAMINS W/ FOLIC ACID TABLET (FP) PO SCH (10:22)
[2017-01-30] MEDS: NICOTINE 14 MG/24 HOURS TOPICAL PATCH TD SCH (10:22)
[2017-01-30] MEDS: PATIENT'S OWN MEDICATION (NON-FORMULARY) (Brexpiprazole [Rexulti] 2 MG) PO SCH (21:55)
[2017-01-30] MEDS: MIRTAZAPINE 15 MG TABLET (FP) PO SCH (21:55)
[2017-01-30] MEDS: THIAMINE HCL 100 MG TABLET (FP) PO SCH (21:55)
[2017-01-30] MEDS: AMITRIPTYLINE HCL 100 MG TABLET PO SCH (21:55)
[2017-01-30] MEDS: hydrOXYzine PAMOATE 50 MG CAPSULE (FP) PO PRN (21:56)
[2017-01-31] MEDS: MAG HYDROX/ALH/SMC/DPHA/LIDO 180 ML MOUTHWASH MM SCH ×4 (06:33→17:07)
[2017-01-31] MEDS: TAMSULOSIN HCL 0.4 MG CAP.ER.24H (FP) PO SCH (09:30)
[2017-01-31] MEDS: PRENATAL VITAMINS W/ FOLIC ACID TABLET (FP) PO SCH (10:19)
[2017-01-31] MEDS: amLODIPine BESYLATE 5 MG TABLET (FP) PO SCH (10:20)
[2017-01-31] MEDS: NICOTINE 14 MG/24 HOURS TOPICAL PATCH TD SCH (10:20)
[2017-01-31] MEDS: hydrOXYzine PAMOATE 50 MG CAPSULE (FP) PO PRN (21:38)
[2017-01-31] MEDS: MIRTAZAPINE 15 MG TABLET (FP) PO SCH (21:38)
[2017-01-31] MEDS: PATIENT'S OWN MEDICATION (NON-FORMULARY) (Brexpiprazole [Rexulti] 2 MG) PO SCH (21:38)
[2017-01-31] MEDS: THIAMINE HCL 100 MG TABLET (FP) PO SCH (21:38)
[2017-01-31] MEDS: AMITRIPTYLINE HCL 100 MG TABLET PO SCH (21:38)
[2017-02-01] MEDS: MAG HYDROX/ALH/SMC/DPHA/LIDO 180 ML MOUTHWASH MM SCH ×4 (06:00→17:10)
[2017-02-01] MEDS: TAMSULOSIN HCL 0.4 MG CAP.ER.24H (FP) PO SCH (09:00)
[2017-02-01] MEDS: amLODIPine BESYLATE 5 MG TABLET (FP) PO SCH (09:54)
[2017-02-01] MEDS: PRENATAL VITAMINS W/ FOLIC ACID TABLET (FP) PO SCH (09:54)
[2017-02-01] MEDS: NICOTINE 14 MG/24 HOURS TOPICAL PATCH TD SCH (09:55)
[2017-02-01] MEDS: PATIENT'S OWN MEDICATION (NON-FORMULARY) (Brexpiprazole [Rexulti] 2 MG) PO SCH (21:34)
[2017-02-01] MEDS: MIRTAZAPINE 15 MG TABLET (FP) PO SCH (21:35)
[2017-02-01] MEDS: AMITRIPTYLINE HCL 100 MG TABLET PO SCH (21:35)
[2017-02-01] MEDS: hydrOXYzine PAMOATE 50 MG CAPSULE (FP) PO PRN (21:35)
[2017-02-01] MEDS: THIAMINE HCL 100 MG TABLET (FP) PO SCH (21:35)
[2017-02-02] MEDS: MAG HYDROX/ALH/SMC/DPHA/LIDO 180 ML MOUTHWASH MM SCH ×5 (07:08→23:44)
[2017-02-02] MEDS: TAMSULOSIN HCL 0.4 MG CAP.ER.24H (FP) PO SCH (09:30)
[2017-02-02] MEDS: PRENATAL VITAMINS W/ FOLIC ACID TABLET (FP) PO SCH (10:34)
[2017-02-02] MEDS: NICOTINE 14 MG/24 HOURS TOPICAL PATCH TD SCH (10:35)
[2017-02-02] MEDS: amLODIPine BESYLATE 5 MG TABLET (FP) PO SCH (10:35)
[2017-02-02] MEDS: PATIENT'S OWN MEDICATION (NON-FORMULARY) (Brexpiprazole [Rexulti] 2 MG) PO SCH (21:53)
[2017-02-02] MEDS: MIRTAZAPINE 15 MG TABLET (FP) PO SCH (21:54)
[2017-02-02] MEDS: THIAMINE HCL 100 MG TABLET (FP) PO SCH (21:54)
[2017-02-02] MEDS: AMITRIPTYLINE HCL 100 MG TABLET PO SCH (21:54)
[2017-02-03] MEDS: MAG HYDROX/ALH/SMC/DPHA/LIDO 180 ML MOUTHWASH MM SCH ×4 (06:48→23:22)
[2017-02-03] MEDS: TAMSULOSIN HCL 0.4 MG CAP.ER.24H (FP) PO SCH (08:54)
[2017-02-03] MEDS: NICOTINE 14 MG/24 HOURS TOPICAL PATCH TD SCH (10:05)
[2017-02-03] MEDS: amLODIPine BESYLATE 5 MG TABLET (FP) PO SCH (10:06)
[2017-02-03] MEDS: PRENATAL VITAMINS W/ FOLIC ACID TABLET (FP) PO SCH (10:06)
[2017-02-03] MEDS: MIRTAZAPINE 15 MG TABLET (FP) PO SCH (22:04)
[2017-02-03] MEDS: THIAMINE HCL 100 MG TABLET (FP) PO SCH (22:04)
[2017-02-03] MEDS: AMITRIPTYLINE HCL 100 MG TABLET PO SCH (22:04)
[2017-02-03] MEDS: PATIENT'S OWN MEDICATION (NON-FORMULARY) (Brexpiprazole [Rexulti] 2 MG) PO SCH (22:04)
[2017-02-03] MEDS: hydrOXYzine PAMOATE 50 MG CAPSULE (FP) PO PRN (22:06)
[2017-02-04] MEDS: MAG HYDROX/ALH/SMC/DPHA/LIDO 180 ML MOUTHWASH MM SCH ×4 (06:19→23:32)
[2017-02-04] MEDS: TAMSULOSIN HCL 0.4 MG CAP.ER.24H (FP) PO SCH (10:38)
[2017-02-04] MEDS: amLODIPine BESYLATE 5 MG TABLET (FP) PO SCH (10:38)
[2017-02-04] MEDS: NICOTINE 14 MG/24 HOURS TOPICAL PATCH TD SCH (10:38)
[2017-02-04] MEDS: PRENATAL VITAMINS W/ FOLIC ACID TABLET (FP) PO SCH (10:38)
[2017-02-04] MEDS: AMITRIPTYLINE HCL 100 MG TABLET PO SCH (22:03)
[2017-02-04] MEDS: PATIENT'S OWN MEDICATION (NON-FORMULARY) (Brexpiprazole [Rexulti] 2 MG) PO SCH (22:03)
[2017-02-04] MEDS: MIRTAZAPINE 15 MG TABLET (FP) PO SCH (22:03)
[2017-02-04] MEDS: THIAMINE HCL 100 MG TABLET (FP) PO SCH (22:03)
[2017-02-04] MEDS: hydrOXYzine PAMOATE 50 MG CAPSULE (FP) PO PRN (22:05)
[2017-02-05] MEDS: MAG HYDROX/ALH/SMC/DPHA/LIDO 180 ML MOUTHWASH MM SCH ×4 (06:16→23:51)
--- NOTE | 2017-02-05 08:25 | PN ---
Psychiatric Progress Note Vital Signs: Vital Signs Period Temp Pulse Resp BP Sys/Somers Pulse Ox Last 24 Hr 98.3 F 90-94 18-20 121-143/75-91 Date of Session: 02/05/17 Chief Complaint:: Discharge Note HPI: Patient addressing Alcohol. Opoid and Cocaine Dependence comorbid with Nicotine Dependence and Schizoaffective Disorder ROS: Arthritis, BPH, Hep C and HTN were medically managed Current Medications: Active Medications Generic Name Dose Route Start Last Admin Trade Name Freq PRN Reason Stop Dose Admin Acetaminophen 650 mg 01/24/17 12:51 Tylenol - PO Q4H PRN FEVER OR PAIN Al Hydroxide/Mg Hydroxide 30 ml 01/24/17 12:51 Mylanta Oral Suspension - PO Q6H PRN DYSPEPSIA Amitriptyline HCl 100 mg 01/24/17 22:00 02/04/17 22:03 Elavil - PO 100 mg HS CARLOS Administration Amlodipine Besylate 5 mg 01/25/17 10:00 02/04/17 10:38 Norvasc - PO 5 mg DAILY CARLOS Administration Eucalyptus/Menthol/Phenol/Sorbitol 1 each 01/24/17 12:51 01/29/17 10:06 Cepastat Lozenge - MM 1 each Q4H PRN Administration SORE THROAT Guaifenesin 10 ml 01/24/17 12:51 01/26/17 06:41 Robitussin Dm - PO 10 ml Q6H PRN Administration COUGH Hydroxyzine Pamoate 50 mg 01/24/17 12:51 02/04/17 22:05 Vistaril - PO 50 mg Q4H PRN Administration AGITATION Ibuprofen 400 mg 01/24/17 12:51 Motrin - PO Q6H PRN PAIN Lidocaine/Aluminum/Magnesium/Simeth 5 ml 01/25/17 18:00 02/05/17 06:16 Magic Mouthwash *Sjr Formula* - MM 5 ml Q6HPO CARLOS Administration Loperamide HCl 4 mg 01/24/17 12:51 01/25/17 19:44 Imodium - PO 4 mg Q6H PRN Administration DIARRHEA Magnesium Hydroxide 30 ml 01/24/17 12:51 Milk Of Magnesia - PO DAILY PRN CONSTIPATION Mirtazapine 15 mg 01/24/17 22:00 02/04/17 22:03 Remeron - PO 15 mg HS CARLOS Administration Nicotine 14 mg 01/25/17 10:00 02/04/17 10:38 Nicoderm Patch - TD 14 mg DAILY CARLOS Administration Nicotine Polacrilex 2 mg 01/24/17 12:51 01/28/17 17:58 Nicorette Gum - BUC 2 mg Q2H PRN Administration NICOTINE REPLACEMENT RX Non-Formulary Medication 4 mg 01/24/17 12:51 Tizanidine Hcl [Zanaflex] PO TID PRN MUSCLE SPASMS Non-Formulary Medication 2 mg 01/24/17 22:00 02/04/17 22:03 Brexpiprazole [Rexulti] PO 2 mg HS CARLOS Administration Multivit/Folic Acid/Iron 1 tab 01/25/17 10:00 02/04/17 10:38 Vitamins (Sjr) - PO 1 tab DAILY CARLOS Administration Pseudoephedrine/Triprolidine 1 combo 01/24/17 12:51 01/29/17 13:32 Actifed - PO 1 combo TID PRN Administration NASAL CONGESTION Tamsulosin HCl 0.4 mg 01/25/17 08:30 02/04/17 10:38 Flomax - PO 0.4 mg DAILY@0830 CARLOS Administration Thiamine HCl 100 mg 01/24/17 22:00 02/04/17 22:03 Vitamin B1 - PO 100 mg HS CARLOS Administration Current Side Effect: No Lab tests ordered: Yes Lab tests reviewed: Yes Provider note:: Patient will complete this program on 02/06/17. He has met his treatment goals and will continue to address his issues in outpatient treatment at [facility] at [address] [place] [address].Told augusto that from his participation in this program, he has learned not only to focus on himself and be patient but also to go to meetings. He responded well to Rexulti 2 mg po HS and Amytriptyline 100 mg po HS. Scripts for 30 days supply of these medications will be electronically transmitted to [facility] at [address] [place] [address]. He is stable for discharge on 02/06/17 Total face to face time:: 35 Mental Status Exam - Mental Status Exam Alert and Oriented to: Time, Place, Person Cognitive Function: Fair Patient Appearance: Well Groomed Mood: Hopeful, Euthymic Affect: Appropriate Patient Behavior: Cooperative Speech Pattern: Clear, Artificially Ventilated Voice Loudness: Limited Variation Thought Process: Intact, Goal Oriented Thought Disorder: Not Present Hallucinations: Denies Suicidal Ideation: Denies Homicidal Ideation: Denies Insight/Judgement: Fair Sleep: Well Appetite: Good Muscle strength/Tone: Normal Gait/Station: Normal Psychiatric Treatment Plan - Problem List (1) Cocaine dependence Current Visit: No (2) Hepatitis C Current Visit: No (3) Nicotine dependence Current Visit: No (4) Hypertension Current Visit: No (5) BPH (benign prostatic hyperplasia) Current Visit: No (6) Arthritis Current Visit: No (7) Alcohol dependence Current Visit: Yes (8) Opioid dependence Current Visit: Yes (9) Schizoaffective disorder Current Visit: Yes (10) Bipolar disorder Current Visit: Yes Initial treatment plan: Patient will be discharged tomorrow and referred to [facility] for outpatient treatment
[2017-02-05] MEDS: TAMSULOSIN HCL 0.4 MG CAP.ER.24H (FP) PO SCH (09:30)
[2017-02-05] MEDS: amLODIPine BESYLATE 5 MG TABLET (FP) PO SCH (10:09)
[2017-02-05] MEDS: NICOTINE 14 MG/24 HOURS TOPICAL PATCH TD SCH (10:09)
[2017-02-05] MEDS: PRENATAL VITAMINS W/ FOLIC ACID TABLET (FP) PO SCH (10:09)
[2017-02-05] MEDS: MIRTAZAPINE 15 MG TABLET (FP) PO SCH (21:07)
[2017-02-05] MEDS: hydrOXYzine PAMOATE 50 MG CAPSULE (FP) PO PRN (21:07)
[2017-02-05] MEDS: AMITRIPTYLINE HCL 100 MG TABLET PO SCH (21:07)
[2017-02-05] MEDS: THIAMINE HCL 100 MG TABLET (FP) PO SCH (21:07)
[2017-02-05] MEDS: PATIENT'S OWN MEDICATION (NON-FORMULARY) (Brexpiprazole [Rexulti] 2 MG) PO SCH (21:08)
[2017-02-06] MEDS: MAG HYDROX/ALH/SMC/DPHA/LIDO 180 ML MOUTHWASH MM SCH (06:39)
[2017-02-06 07:19] VITALS: TEMP 96.5
[2017-02-06 09:30] VITALS: BP 144/77; PULSE 91
[2017-02-06] MEDS: PRENATAL VITAMINS W/ FOLIC ACID TABLET (FP) PO SCH (09:33)
[2017-02-06] MEDS: amLODIPine BESYLATE 5 MG TABLET (FP) PO SCH (09:34)
[2017-02-06] MEDS: TAMSULOSIN HCL 0.4 MG CAP.ER.24H (FP) PO SCH (09:34)
[2017-02-06] MEDS ORDERED: PT OWN MED DRAWER 7, Y5N ONE (09:40)
[2017-02-06] MEDS: NICOTINE 14 MG/24 HOURS TOPICAL PATCH TD SCH (10:10)
== END 2017-02-06 09:45 | disposition home or self-care (01) | DRG 772 ==
LOC: YASAS 11:36 → Y3W 11:37
PROVIDERS: ADMIT Psychiatry & Neurology Psychiatry; ATTEND Psychiatry & Neurology Psychiatry
PROC: HZ42ZZZ Group Counseling for Substance Abuse Treatment, Cognitive-Behavioral (ICD-10-PCS; principal; 2017-01-24)
DX: F11.23 Opioid dependence with withdrawal (principal); F10.230 Alcohol dependence with withdrawal, uncomplicated; F14.20 Cocaine dependence, uncomplicated; F17.210 Nicotine dependence, cigarettes, uncomplicated; F25.9 Schizoaffective disorder, unspecified; F31.9 Bipolar disorder, unspecified; I10 Essential (primary) hypertension; N40.0 Benign prostatic hyperplasia without lower urinary tract symptoms; B18.2 Chronic viral hepatitis C; M12.9 Arthropathy, unspecified
CPT/HCPCS: 87070; 90688; G0008